=== PATIENT | male | born 2000 | race Caucasian/White ===

== ENCOUNTER 2022-01-27 06:50 | Emergency (ER) | payer MEDICAID, OTHER ==
[~2022-01-27] VITALS: Ht 180.3 cm; Wt 68.5 kg
[2022-01-27 06:55] VITALS: BP 133/84
--- NOTE | 2022-01-27 07:01 | NUR ---
pt ambulatory to bed 07.
--- NOTE | 2022-01-27 07:04 | NUR ---
21 y/o male bib brother .PT STATES DRY COUGH X 2 DAYS. PT STATES N/F/D/ SOB /CHEST PAIN; PT TOOK RUBUTUSSIN, ADVIL NYQUIL. PT STATES 06/15 IN THROAT. SKIN IS PINK/WARM/DRY; AAOX4 WITH EVEN AND STEADY GAIT; LUNGS CLEAR BL; HR EVEN AND REGULAR; NO PMH NO RX NO ALLERGIES LBM 01/26/2022
--- NOTE | 2022-01-27 07:20 | NUR ---
DR. BUNCH AT BEDSIDE EVALUATING PATIENT.
--- NOTE | 2022-01-27 07:24 | NUR ---
RECEIVED REPORT FROM SALUD HENRY FOR TRANSFER OF CARE.
[2022-01-27] MEDS: KETOROLAC 60 MG/2 ML VIAL IM ONE (07:35)
[2022-01-27] MEDS ORDERED: IBUP-2213 PO (08:00)
[2022-01-27] MEDS ORDERED: PRED20TA5 PO (08:00)
[2022-01-27 08:06] VITALS: BP 128/80
--- NOTE | 2022-01-27 08:06 | NUR ---
Patient discharged with v/s stable. Written and verbal after care instructions given FOR COUGH AND SORE THROAT and explained. Patient alert, oriented and verbalized understanding of instructions. Ambulatory with steady gait. All questions addressed prior to discharge. ID band removed. Patient advised to follow up with PMD. Rx of PREDNISONE AND IBUPROFEN given. Patient educated on indication of medication including possible reaction and side effects. Opportunity to ask questions provided and answered.
== END 2022-01-27 08:06 | disposition home or self-care (01) ==
LOC: MED 06:50
DX: J02.9 Acute pharyngitis, unspecified (principal); R05.9 Cough, unspecified
CPT/HCPCS: 96372; 99283; J1885

== ENCOUNTER 2022-12-04 20:47 | Emergency (ER) | payer OTHER ==
[~2022-12-04] VITALS: Ht 180.3 cm; Wt 64.9 kg
[~2022-12-04 20:47] MED LIST: IBUP-2213 PO; PRED20TA5 PO
[2022-12-04 21:00] VITALS: BP 129/99
--- NOTE | 2022-12-04 21:03 | NUR ---
TO LOBBY A/W BED AMBULATORY
[2022-12-04] MEDS ORDERED: HYDROcodone/APAP 5/325 MG 1 TAB TAB PO ONE (22:55)
[2022-12-04] MEDS ORDERED: IBUPROFEN 600 MG TAB PO ONE (22:55)
[2022-12-04] MEDS ORDERED: ACET-8905 PO (22:58)
--- NOTE | 2022-12-04 23:05 | NUR ---
CONFIRMED WITH PT HE HAS A RIDE HOME, STATES HIS BROTHER WILL BE DRIVING.
[2022-12-04 23:15] VITALS: BP 129/99
== END 2022-12-04 23:15 | disposition home or self-care (01) ==
LOC: MED 20:47
DX: K08.89 Other specified disorders of teeth and supporting structures (principal); R22.0 Localized swelling, mass and lump, head; Z79.899 Other long term (current) drug therapy
CPT/HCPCS: 99283

== ENCOUNTER 2023-11-16 22:56 | Emergency (ER) | payer OTHER ==
[~2023-11-16] VITALS: Ht 180.3 cm; Wt 68.0 kg
[~2023-11-16 22:56] MED LIST changes: +ACET-8905 PO
[2023-11-16 23:00] VITALS: BP 134/71; PULSE 69; RESP 16; TEMP 98.5; O2SAT 96
[2023-11-16 23:26] VITALS: O2SAT 96
== END 2023-11-17 00:12 | disposition home or self-care (01) ==
LOC: MED 22:56
DX: S30.812A Abrasion of penis, initial encounter (principal); X58.XXXA Exposure to other specified factors, initial encounter; Y93.89 Activity, other specified; Y92.89 Other specified places as the place of occurrence of the external cause; Y99.8 Other external cause status
CPT/HCPCS: 90471; 90715; 99283